=== PATIENT | female | born 1935 | race Caucasian/White ===

== ENCOUNTER 2017-10-26 06:36 | Day surgery (SDC) | payer MEDICARE, MEDICAID ==
[2017-10-25 09:01] LABS: BASOPHILS % (AUTO) 0.4 % (0-1); EOSINOPHILS # (AUTO) 0.1 X10'3 (0-0.9); EOSINOPHILS % (AUTO) 1.8 % (0-6); HEMATOCRIT 41.3 % (35.0-45.0); LYMPHOCYTES # (AUTO) 1.3 X10'3 (1.1-4.8); LYMPHOCYTES % (AUTO) 24.5 % (21-51); MEAN CORPUSCULAR HEMOGLOBIN 29.9 PG (27.0-31.0); MEAN CORPUSCULAR HGB CONC 33.9 % (33.0-36.5); MEAN CORPUSCULAR VOLUME 88.3 FL (78-98); MEAN PLATELET VOLUME 7.2 FL (7.4-10.4); MONOCYTES # (AUTO) 0.4 X10'3 (0-0.9); MONOCYTES % (AUTO) 8.1 % (2-12); NEUTROPHILS # (AUTO) 3.4 X10'3 (1.8-7.7); NEUTROPHILS % (AUTO) 65.2 % (42-75); PLATELET COUNT 174 X10'3 (140-440); RED BLOOD COUNT 4.67 X10'6 (4.20-5.60); RED CELL DISTRIBUTION WIDTH 13.7 % (11.5-14.5); WHITE BLOOD COUNT 5.2 X10'3 (4.5-11.0)
[2017-10-25 09:12] LABS: INR 0.9 INR; PARTIAL THROMBOPLASTIN TIME 27 SECONDS (22-32); PROTHROMBIN TIME 9.7 SECONDS (9.0-12.0)
[2017-10-25 09:22] LABS: ANION GAP 8 (8-16); BLOOD UREA NITROGEN 15 MG/DL (7-18); CALCIUM 9.5 MG/DL (8.5-10.1); CHLORIDE 105 MMOL/L (99-107); CHOL/HDL RATIO 2.3 (0.00-4.99); CHOLESTEROL 134 MG/DL (0-200); CREATININE 0.94 MG/DL (0.40-0.90); GLUCOSE 103 MG/DL (70-104); HDL CHOLESTEROL 58 MG/DL (35-60); LDL CHOLESTEROL 59 MG/DL (50-100); POTASSIUM 4.5 MMOL/L (3.5-5.1); SODIUM 144 MMOL/L (135-145); TOTAL CARBON DIOXIDE 31.3 MMOL/L (24-32); TRIGLYCERIDES 78 MG/DL (20-135); eGFR 57 ML/MIN
[~2017-10-26] VITALS: Ht 170.2 cm; Wt 96.8 kg
[2017-10-26] VITALS (14 sets, daily range): BP systolic 125–161; BP diastolic 57–96
[~2017-10-26 06:36] MED LIST: AMLO5TAB PO; ASPI-1265 PO; CHOL100046 PO; DOCU-28 PO; DOXY150T3 PO; FAMO40TA58 PO; FURO40TA4 PO; GLUC1CAP33 PO; HYDR-3965 PO; LOSA50TA3 PO; LOVA40TA2 PO; MAGN400C PO; METO-539 PO; NEBU-184; OMEG-79 PO; OSC500T PO; POTA20TA10 PO; PRED5TAB PO; ZIN220C PO
[2017-10-26] MEDS ORDERED: LORazepam 0.5 MG tablet PO PRN (07:15)
[2017-10-26] MEDS ORDERED: normal saline 1000ml 1,000 ML IV SCH (07:15)
[2017-10-26] MEDS ORDERED: diphenhydrAMINE 25mg capsule PO PRN (07:15)
[2017-10-26] MEDS ORDERED: LIDOcaine 1% (10mg/ml) 2ml vial ONE ×2 (08:04→09:22)
[2017-10-26] MEDS ORDERED: HYDR-3972 PO (08:53)
[2017-10-26] MEDS ORDERED: ALBU18HF2 INH (08:53)
[2017-10-26] MEDS ORDERED: BIOT1TAB2 PO (08:53)
[2017-10-26] MEDS ORDERED: OREGANO PO (08:54)
[2017-10-26] MEDS ORDERED: CALC-627 PO (08:57)
[2017-10-26] MEDS ORDERED: nitroGLYCERIN-Tridil 50MG/D5W 250 ML IV ONE (09:22)
[2017-10-26] MEDS ORDERED: iohexol 350MG/ML 100ml bottle IV ONE (09:22)
[2017-10-26] MEDS ORDERED: heparin 1,000unit/ml 10ml vial 10 ML ONE (09:22)
[2017-10-26] MEDS ORDERED: iohexol 350 MG/ML 50ML vial IV ONE (09:22)
[2017-10-26] MEDS ORDERED: midazolam 2 mg/2 ml injection ONE (10:00)
[2017-10-26] MEDS ORDERED: fentaNYL/PF 50MCG/1 ML 2ML syringe ONE (10:00)
[2017-10-26] MEDS ORDERED: hydrocortisone sod succ/PF 100mg/2ml inj. ONE (10:26)
[2017-10-26] MEDS ORDERED: HYDROcodone/acetaminophen 5mg/325mg tablet PO PRN (13:40)
[2017-10-26] MEDS ORDERED: HYDROcodone/acetaminophen 10/325mg tab PO PRN (13:40)
[2017-10-26 17:06] LABS: ISTAT Hct MIX 35 %PCV (35-48); ISTAT O2 SATURATION MIX VENOUS 75 % (60-80); ISTAT SOURCE MIX
[2017-10-26 17:06] LABS: ISTAT HGB ART 11.9 g/dl (12.0-16.0); ISTAT Hct ART 35 %PCV (35-48); ISTAT O2 SATURATION ARTERIAL 97 % (95-98); ISTAT SOURCE ART
== END 2017-10-26 20:35 | disposition home or self-care (01) ==
LOC: SSTAY O 06:36
PROVIDERS: ATTEND Internal Medicine Cardiovascular Disease
DX: I25.10 Atherosclerotic heart disease of native coronary artery without angina pectoris (principal); E78.5 Hyperlipidemia, unspecified; I10 Essential (primary) hypertension; I47.1 Supraventricular tachycardia; J44.9 Chronic obstructive pulmonary disease, unspecified; G47.33 Obstructive sleep apnea (adult) (pediatric); E66.3 Overweight; K21.9 Gastro-esophageal reflux disease without esophagitis; G89.29 Other chronic pain; M19.90 Unspecified osteoarthritis, unspecified site; F32.9 Major depressive disorder, single episode, unspecified; F41.9 Anxiety disorder, unspecified; Z78.0 Asymptomatic menopausal state; Z86.79 Personal history of other diseases of the circulatory system; Z79.891 Long term (current) use of opiate analgesic; Z79.82 Long term (current) use of aspirin; Z87.891 Personal history of nicotine dependence; Z90.89 Acquired absence of other organs; Z88.4 Allergy status to anesthetic agent; Z85.828 Personal history of other malignant neoplasm of skin; Z98.890 Other specified postprocedural states; Z79.899 Other long term (current) drug therapy
CPT/HCPCS: 36415; 80048; 80061; 82803; 85014; 85025; 85610; 85730; 93005; 93460; 99152; 99153; A6257; A6449; C1769; J1644; J1720; J2250; J3010; J3490; J7030; Q0163; Q9967; A4620

== ENCOUNTER 2018-05-01 00:26 | Outpatient (CLI) | payer MEDICARE, MEDICAID ==
[~2018-05-01 00:26] MED LIST changes: +ALBU18HF2 INH; +BIOT1TAB2 PO; +CALC-627 PO; -CHOL100046 PO; -DOXY150T3 PO; -HYDR-3965 PO; +HYDR-3972 PO; -LOVA40TA2 PO; -MAGN400C PO; -NEBU-184; +OREGANO PO; -OSC500T PO; -PRED5TAB PO; -ZIN220C PO
== END 2018-05-01 23:59 | disposition home or self-care (01) ==
LOC: RT 00:26
PROVIDERS: ATTEND Internal Medicine Critical Care Medicine
DX: J44.9 Chronic obstructive pulmonary disease, unspecified (principal); G47.39 Other sleep apnea; I10 Essential (primary) hypertension; Z88.4 Allergy status to anesthetic agent; Z98.890 Other specified postprocedural states; Z79.82 Long term (current) use of aspirin; Z79.899 Other long term (current) drug therapy; Z87.891 Personal history of nicotine dependence
CPT/HCPCS: 94618

== ENCOUNTER 2018-11-01 10:00 | Outpatient (CLI) | payer MEDICARE, MEDICAID | END 2018-11-01 23:59 | disposition home or self-care (01) | LOC: VAS 10:00 | PROVIDERS: ATTEND Internal Medicine Cardiovascular Disease | DX: I70.213 Atherosclerosis of native arteries of extremities with intermittent claudication, bilateral legs (principal) | CPT/HCPCS: 93922; 93925 ==

== ENCOUNTER 2018-11-05 05:19 | Emergency (ER) | payer MEDICARE, MEDICAID ==
[~2018-11-05] VITALS: Ht 170.2 cm; Wt 96.8 kg
[2018-11-05] MEDS ORDERED: methylPREDNISolone sod succ 125mg/2ml vial IV ONE (05:30)
[2018-11-05] MEDS ORDERED: ipratropium/albuterol 3ml nebule NEB ONE (05:30)
[2018-11-05 05:37] LABS: BASOPHILS # (AUTO) 0.1 X10'3 (0-0.2); BASOPHILS % (AUTO) 0.7 % (0-1); EOSINOPHILS # (AUTO) 0.1 X10'3 (0-0.9); EOSINOPHILS % (AUTO) 0.9 % (0-6); HEMATOCRIT 36.8 % (35.0-45.0); HEMOGLOBIN 12.5 g/dl (12.0-16.0); MEAN CORPUSCULAR VOLUME 85.3 FL (78-98); MEAN PLATELET VOLUME 7.2 FL (7.4-10.4); MONOCYTES # (AUTO) 0.8 X10'3 (0-0.9); MONOCYTES % (AUTO) 10.2 % (2-12); NEUTROPHILS # (AUTO) 5.8 X10'3 (1.8-7.7); NEUTROPHILS % (AUTO) 75.2 % (42-75); PLATELET COUNT 233 X10'3 (140-440); RED BLOOD COUNT 4.31 X10'6 (4.20-5.60); RED CELL DISTRIBUTION WIDTH 14.5 % (11.5-14.5); WHITE BLOOD COUNT 7.8 X10'3 (4.5-11.0)
[2018-11-05 05:49] LABS: ALANINE AMINOTRANSFERASE 25 U/L (12-78); ALBUMIN 3.6 G/DL (3.4-5.0); ALKALINE PHOSPHATASE 67 IU/L (46-116); ANION GAP 8 (8-16); ASPARTATE AMINO TRANSFERASE 24 U/L (10-37); BILIRUBIN,TOTAL 0.5 MG/DL (0.1-1.0); BLOOD UREA NITROGEN 9 MG/DL (7-18); BUN/CREATININE RATIO 10.8 (6.6-38.0); CALCIUM 9.1 MG/DL (8.5-10.1); CHLORIDE 102 MMOL/L (99-107); CREATININE 0.83 MG/DL (0.40-0.90); GLUCOSE 109 MG/DL (70-104); POTASSIUM 3.9 MMOL/L (3.5-5.1); SODIUM 137 MMOL/L (135-145); TOTAL CARBON DIOXIDE 27.2 MMOL/L (24-32); TOTAL PROTEIN 7.1 G/DL (6.4-8.2); eGFR 66 ML/MIN
[2018-11-05 05:57] LABS: TROPONIN I < 0.04 NG/ML (0.0-0.05)
[2018-11-05 06:10] LABS: INR 0.9 INR; PARTIAL THROMBOPLASTIN TIME 32 SECONDS (22-32)
[2018-11-05] MEDS ORDERED: ALBU8.5H8 INH (06:17)
[2018-11-05] MEDS ORDERED: PRED20TA PO (06:17)
[2018-11-05] MEDS ORDERED: LEVO750T21 PO (06:17)
[2018-11-05 06:32] VITALS: BP 123/72
[2018-11-05] MEDS ORDERED: ketorolac trometh. 30mg/ml inj. IV ONE (06:55)
[2018-11-05] MEDS ORDERED: HYDROcodone/acetaminophen 5mg/325mg tablet PO ONE (08:40)
== END 2018-11-05 11:35 | disposition home or self-care (01) ==
LOC: ER 05:19
DX: J44.1 Chronic obstructive pulmonary disease with (acute) exacerbation (principal); I25.10 Atherosclerotic heart disease of native coronary artery without angina pectoris; M19.90 Unspecified osteoarthritis, unspecified site; G89.29 Other chronic pain; Z87.891 Personal history of nicotine dependence; Z79.82 Long term (current) use of aspirin; Z88.8 Allergy status to other drugs, medicaments and biological substances
CPT/HCPCS: 36415; 71045; 80053; 83880; 84484; 85025; 85610; 85730; 93005; 94640; 94760; 96374; 99284; J2930